=== PATIENT | female | born 1940 | race African-American/Black ===

== ENCOUNTER 2016-10-03 09:46 | Inpatient (IN) | payer OTHER ==
[~2016-10-03] VITALS: Ht 172.7 cm; Wt 91.6 kg
[~2016-10-03 09:46] MED LIST: AMLODIPINE BESYL5 M1 PO; BAYER GENUINE325 M1 PO; CLOPIDOGREL75 M1 PO; COL100 PO; COREG12.5 MG PO; COZ25 PO; FLA500 PO; FOLIC ACID1 MG PO; GLU500 PO; HYDROCHLOROTHIA25 MG PO; HYDROCODONE/ACE1 T12 PO; HYDROXYCHLOROQ200 MG PO; LAC PO; LASIX40 MG PO; LATANOPROST2.5 ML OU; LEVAQUIN750 MG PO; LOP50 PO; METFORMIN HCL500 MG PO; METHOTREXATE2.5 M2; NEXIUM40 MG PO; PRILOSEC40 MG PO; RANITIDINE HCL300 MG PO; SIMETHICONE125 M1 PO; SYNTHROID0.125 MG PO; VIAGRA50 MG PO; ZOCOR40 MG PO
[2016-10-03 10:40] LABS: BASOPHIL % 0.2 % (0-2); PLATELET COUNT 233 x10^3mcL (130-400)
[2016-10-03 10:41] LABS: RED CELL DISTRIBUTION WIDTH 19.8 % (11.5-14.5)
[2016-10-03 10:45] LABS: CALCIUM 8.9 mg/dL (8.5-10.1); CARBON DIOXIDE 21.6 mmol/L (21-32); CHLORIDE SERUM 106 mmol/L (98-107); CREATININE SERUM 0.8 mg/dL (0.6-1.0); GLUCOSE SERUM 166 mg/dL (74-106); POTASSIUM SERUM 3.7 mmol/L (3.5-5.1); SODIUM SERUM 141 mmol/L (136-145)
[2016-10-03 10:51] LABS: ALBUMIN 3.8 g/dL (3.4-5.0); ALKALINE PHOSPHATASE 96 U/L (46-116); ALT/SGPT 22 U/L (14-59); AST/SGOT 20 U/L (15-37); BILIRUBIN TOTAL 0.59 mg/dL (0.20-1.00)
[2016-10-03] MEDS ORDERED: OMEPRAZOLE40 M1 PO (11:03)
[2016-10-03] MEDS ORDERED: FLAX OIL PO (11:03)
[2016-10-03] MEDS ORDERED: LOVAZA1 G1 PO (11:03)
[2016-10-03] MEDS ORDERED: LOSARTAN POTASS25 M1 PO (11:03)
[2016-10-03 13:05] VITALS: BP 156/74
[2016-10-03 13:27] LABS: T3 TOTAL 0.78 ng/mL
[2016-10-03 13:49] LABS: CHOLESTEROL/HDL RATIO 2.4; MAGNESIUM 1.8 mg/dL (1.8-2.4); PHOSPHOROUS 3.9 mg/dL (2.5-4.9)
[2016-10-03 14:14] LABS: FREE T4 1.17 ng/dL (0.76-1.46); FREE THYROXINE INDEX 3.7 ug/dL (1.4-4.5); T4(THYROXINE) 9.9 ug/dL (4.7-13.3)
[2016-10-03 14:33] VITALS: BP 156/74
[2016-10-03 16:22] LABS: UA SPECIFIC GRAVITY >=1.030 (1.005-1.035); microscopic required? YES; urine erythrocyte TRACE (NEGATIVE)
[2016-10-03 16:32] LABS: AMPHETAMINE QUAL UR NONE DETECTED (NEG <=1000)
[2016-10-03 21:18] VITALS: BP 127/46
[2016-10-04 05:26] VITALS: BP 112/42; BP 127/59
[2016-10-04 06:32] LABS: CALCIUM 8.9 mg/dL (8.5-10.1); CARBON DIOXIDE 29.6 mmol/L (21-32); CHLORIDE SERUM 106 mmol/L (98-107); CREATININE SERUM 0.9 mg/dL (0.6-1.0); GLUCOSE SERUM 122 mg/dL (74-106); MAGNESIUM 1.9 mg/dL (1.8-2.4); PHOSPHOROUS 3.9 mg/dL (2.5-4.9); POTASSIUM SERUM 4.1 mmol/L (3.5-5.1); SODIUM SERUM 142 mmol/L (136-145)
[2016-10-04 09:29] VITALS: BP 142/56
[2016-10-04 13:19] VITALS: BP 122/50
[2016-10-04 17:10] VITALS: BP 113/53
[2016-10-04 21:57] VITALS: BP 116/48
[2016-10-05 08:54] LABS: CALCIUM 8.9 mg/dL (8.5-10.1); CARBON DIOXIDE 26.8 mmol/L (21-32); CHLORIDE SERUM 108 mmol/L (98-107); CREATININE SERUM 0.9 mg/dL (0.6-1.0); GLUCOSE SERUM 85 mg/dL (74-106); PHOSPHOROUS 3.6 mg/dL (2.5-4.9); POTASSIUM SERUM 4.4 mmol/L (3.5-5.1); SODIUM SERUM 144 mmol/L (136-145)
[2016-10-05 08:56] LABS: BASOPHIL % 0.2 % (0-2); PLATELET COUNT 206 x10^3mcL (130-400)
[2016-10-05 10:02] LABS: RED CELL DISTRIBUTION WIDTH 19.9 % (11.5-14.5)
[2016-10-05 10:53] VITALS: BP 103/48
[2016-10-05 14:12] VITALS: BP 104/43
[2016-10-05 17:42] VITALS: BP 122/43
[2016-10-05 20:51] VITALS: BP 117/60
[2016-10-06 05:47] VITALS: BP 98/49
[2016-10-06 06:04] LABS: BASOPHIL % 0.3 % (0-2); PLATELET COUNT 239 x10^3mcL (130-400)
[2016-10-06 06:33] LABS: CALCIUM 9.1 mg/dL (8.5-10.1); CARBON DIOXIDE 29.7 mmol/L (21-32); CHLORIDE SERUM 103 mmol/L (98-107); CREATININE SERUM 1.1 mg/dL (0.6-1.0); GLUCOSE SERUM 96 mg/dL (74-106); MAGNESIUM 2.1 mg/dL (1.8-2.4); PHOSPHOROUS 5.9 mg/dL (2.5-4.9); POTASSIUM SERUM 4.1 mmol/L (3.5-5.1); SODIUM SERUM 142 mmol/L (136-145)
[2016-10-06 06:34] LABS: RED CELL DISTRIBUTION WIDTH 19.4 % (11.5-14.5)
[2016-10-06 09:44] VITALS: BP 92/79
[2016-10-06 13:23] VITALS: BP 122/57
[2016-10-07 06:12] VITALS: BP 128/71
[2016-10-07 07:41] LABS: BASOPHIL % 0.3 % (0-2); PLATELET COUNT 224 x10^3mcL (130-400)
[2016-10-07 07:43] LABS: RED CELL DISTRIBUTION WIDTH 19.5 % (11.5-14.5)
[2016-10-07 08:04] LABS: CALCIUM 8.8 mg/dL (8.5-10.1); CHLORIDE SERUM 103 mmol/L (98-107); CREATININE SERUM 1.1 mg/dL (0.6-1.0); GLUCOSE SERUM 99 mg/dL (74-106); PHOSPHOROUS 4.2 mg/dL (2.5-4.9); POTASSIUM SERUM 3.5 mmol/L (3.5-5.1); SODIUM SERUM 141 mmol/L (136-145)
[2016-10-07] MEDS ORDERED: COZ50 PO (09:34)
[2016-10-07] MEDS ORDERED: CLOPIDOGREL75 M1 PO (09:43)
[2016-10-07] MEDS ORDERED: LEVOFLOXACIN750 M1 PO (09:50)
[2016-10-07] MEDS ORDERED: FLA500 PO (09:58)
[2016-10-07] MEDS ORDERED: ROBITUSSIN NIG237 ML PO (09:58)
[2016-10-07 10:00] VITALS: BP 123/72
[2016-10-07] MEDS ORDERED: IBUPROFEN400 MG PO (12:05)
[2016-10-07] MEDS ORDERED: VENTOLIN H0.09 MG/A1 INH (12:08)
[2016-10-07] MEDS ORDERED: ANORO ELLIPTA1 POW IH (12:10)
[2016-10-07 13:00] VITALS: BP 123/72
[2016-10-07 14:30] VITALS: BP 111/61
[2016-10-07] MEDS ORDERED: ASPIR 8181 MG PO (17:15)
[2016-10-07] MEDS ORDERED: CLEOCIN HCL300 MG PO (17:32)
[2016-10-07] MEDS ORDERED: LASIX20 MG PO (17:32)
[2016-10-07] MEDS ORDERED: ROBDML PO (17:32)
[2016-10-07] MEDS ORDERED: CARVEDILOL12.5 M1 PO (17:32)
[2016-10-07] MEDS ORDERED: VIAGRA50 MG PO (18:50)
== END 2016-10-07 18:10 | disposition home health service (06) | DRG 291 ==
LOC: ED 09:46 → DU 12:09
PROVIDERS: Emergency Medicine; ADMIT Family Medicine
DX: I50.43 Acute on chronic combined systolic (congestive) and diastolic (congestive) heart failure (principal); N17.0 Acute kidney failure with tubular necrosis; J96.01 Acute respiratory failure with hypoxia; I42.2 Other hypertrophic cardiomyopathy; J20.9 Acute bronchitis, unspecified; R13.10 Dysphagia, unspecified; E11.65 Type 2 diabetes mellitus with hyperglycemia; I27.2 Other secondary pulmonary hypertension; M06.9 Rheumatoid arthritis, unspecified; I73.00 Raynaud's syndrome without gangrene; J45.909 Unspecified asthma, uncomplicated; I25.10 Atherosclerotic heart disease of native coronary artery without angina pectoris; D64.9 Anemia, unspecified; E03.9 Hypothyroidism, unspecified; N39.3 Stress incontinence (female) (male); Z68.30 Body mass index [BMI] 30.0-30.9, adult; Z95.5 Presence of coronary angioplasty implant and graft; Z79.84 Long term (current) use of oral hypoglycemic drugs
CPT/HCPCS: 82962; 83880; 84439; 92610-GN; 92611-GN; 97110-GP; 97116-GP; 97530-GP; J1644; J1940; J1956; J2543; J2930; J3490; J7030; J7613; J7620; J7644; J8610; Q0092

== ENCOUNTER 2017-08-13 13:01 | Inpatient (IN) | payer OTHER ==
[~2017-08-13] VITALS: Ht 172.7 cm; Wt 86.2 kg
[~2017-08-13 13:01] MED LIST changes: +ANORO ELLIPTA1 POW IH; +ASPIR 8181 MG PO; +CARVEDILOL12.5 M1 PO; +CLEOCIN HCL300 MG PO; +COZ50 PO; +FLAX OIL PO; +IBUPROFEN400 MG PO; +LASIX20 MG PO; +LEVOFLOXACIN750 M1 PO; +LOSARTAN POTASS25 M1 PO; +LOVAZA1 G1 PO; +OMEPRAZOLE40 M1 PO; +ROBDML PO; +ROBITUSSIN NIG237 ML PO; +VENTOLIN H0.09 MG/A1 INH
[2017-08-13 14:41] LABS: microscopic required? NO
[2017-08-13 14:55] LABS: UA SPECIFIC GRAVITY 1.015 (1.005-1.035); urine erythrocyte NEGATIVE (NEGATIVE)
[2017-08-13 15:28] LABS: CARBON DIOXIDE 26.4 mmol/L (21-32); CHLORIDE SERUM 104 mmol/L (98-107); GLUCOSE SERUM 102 mg/dL (74-106); POTASSIUM SERUM 4.1 mmol/L (3.5-5.1); SODIUM SERUM 140 mmol/L (136-145)
[2017-08-13 15:31] LABS: BASOPHIL % 0.8 % (0-2); PLATELET COUNT 221 x10^3mcL (130-400)
[2017-08-13 15:32] LABS: RED CELL DISTRIBUTION WIDTH 19.1 % (11.5-14.5)
[2017-08-13 15:36] LABS: ALBUMIN 3.7 g/dL (3.4-5.0); ALKALINE PHOSPHATASE 115 U/L (46-116); ALT/SGPT 35 U/L (14-59); AST/SGOT 26 U/L (15-37); BILIRUBIN TOTAL 0.5 mg/dL (0.20-1.00); LIPASE 128 IU/L (73-393); TOTAL PROTEIN, SERUM 8.1 g/dL (6.4-8.2)
[2017-08-13 15:41] LABS: FREE T4 1.01 ng/dL (0.76-1.46); FREE THYROXINE INDEX 2.6 ug/dL (1.4-4.5); T4(THYROXINE) 7.6 ug/dL (4.7-13.3)
[2017-08-13 15:42] LABS: HDL CHOLESTEROL 75 mg/dL (40-60)
[2017-08-13 15:47] LABS: T3 TOTAL 0.78 ng/mL
[2017-08-13 15:53] LABS: MAGNESIUM 1.7 mg/dL (1.8-2.4)
[2017-08-13] MEDS ORDERED: METHOTREXATE2.5 M2 PO (15:55)
[2017-08-13] MEDS ORDERED: LEVOTHYROXINE0.1 M2 PO (15:56)
[2017-08-13] MEDS ORDERED: LOSARTAN POTASS25 M1 PO (15:56)
[2017-08-13] MEDS ORDERED: LASIX40 MG PO (15:56)
[2017-08-13] MEDS ORDERED: PRA20 PO (15:56)
[2017-08-13] MEDS ORDERED: COL250 PO (15:57)
[2017-08-13] MEDS ORDERED: CARVEDILOL25 M1 PO (15:57)
[2017-08-13] MEDS ORDERED: KETOCONAZOLE2% TOP (15:58)
[2017-08-13] MEDS ORDERED: DILTIAZEM HCL120 M2 PO (15:58)
[2017-08-13] MEDS ORDERED: WOMEN'S DAILY1 TAB PO (16:00)
[2017-08-13] MEDS ORDERED: VITAMIN D32000 I2 PO (16:00)
[2017-08-13 16:31] LABS: CHOLESTEROL 205 mg/dL (<200); CHOLESTEROL/HDL RATIO 2.7; TRIGLYCERIDES 77 mg/dL (<150)
[2017-08-13 16:47] VITALS: BP 134/44
[2017-08-13 16:54] VITALS: Ht 172.7 cm; Wt 86.2 kg
[2017-08-13 22:21] VITALS: BP 125/49
[2017-08-14 06:13] VITALS: BP 112/50
[2017-08-14 07:16] LABS: CALCIUM 8.5 mg/dL (8.5-10.1); CARBON DIOXIDE 27.8 mmol/L (21-32); CHLORIDE SERUM 108 mmol/L (98-107); GLUCOSE SERUM 112 mg/dL (74-106); MAGNESIUM 1.6 mg/dL (1.8-2.4); PHOSPHOROUS 3.6 mg/dL (2.5-4.9); POTASSIUM SERUM 3.8 mmol/L (3.5-5.1); SODIUM SERUM 143 mmol/L (136-145)
[2017-08-14 07:37] LABS: BASOPHIL % 0.5 % (0-2); PLATELET COUNT 205 x10^3mcL (130-400)
[2017-08-14 07:38] LABS: RED CELL DISTRIBUTION WIDTH 19.3 % (11.5-14.5)
[2017-08-14 09:20] VITALS: BP 11/42
[2017-08-14 13:36] VITALS: BP 124/47
[2017-08-14 17:43] VITALS: BP 146/65
[2017-08-15 04:58] VITALS: BP 123/53
[2017-08-15 09:10] VITALS: BP 137/59
[2017-08-15 10:08] LABS: BASOPHIL % 0.4 % (0-2); PLATELET COUNT 188 x10^3mcL (130-400)
[2017-08-15 10:18] LABS: RED CELL DISTRIBUTION WIDTH 19.2 % (11.5-14.5)
[2017-08-15 12:31] VITALS: BP 120/54
[2017-08-15 12:46] LABS: CALCIUM 8.4 mg/dL (8.5-10.1); CARBON DIOXIDE 25.2 mmol/L (21-32); CHLORIDE SERUM 109 mmol/L (98-107); CREATININE SERUM 0.8 mg/dL (0.6-1.0); GLUCOSE SERUM 110 mg/dL (74-106); MAGNESIUM 1.7 mg/dL (1.8-2.4); PHOSPHOROUS 2.9 mg/dL (2.5-4.9); POTASSIUM SERUM 3.8 mmol/L (3.5-5.1); SODIUM SERUM 142 mmol/L (136-145)
[2017-08-15 14:15] VITALS: BP 94/51
[2017-08-15 20:52] VITALS: BP 112/70
[2017-08-16 05:16] VITALS: BP 129/57
[2017-08-16 09:17] VITALS: BP 117/62
[2017-08-16 10:50] LABS: BASOPHIL % 0.1 % (0-2); PLATELET COUNT 187 x10^3mcL (130-400)
[2017-08-16 10:52] LABS: RED CELL DISTRIBUTION WIDTH 19.1 % (11.5-14.5)
[2017-08-16 11:04] LABS: CALCIUM 8.1 mg/dL (8.5-10.1); CARBON DIOXIDE 26.7 mmol/L (21-32); CHLORIDE SERUM 109 mmol/L (98-107); CREATININE SERUM 0.8 mg/dL (0.6-1.0); GLUCOSE SERUM 128 mg/dL (74-106); MAGNESIUM 1.8 mg/dL (1.8-2.4); PHOSPHOROUS 3.1 mg/dL (2.5-4.9); POTASSIUM SERUM 3.8 mmol/L (3.5-5.1); SODIUM SERUM 139 mmol/L (136-145)
[2017-08-16 17:07] VITALS: BP 106/51
[2017-08-16 20:45] VITALS: BP 125/54
[2017-08-17 05:21] VITALS: BP 95/49
[2017-08-17 06:45] LABS: PLATELET COUNT 180 x10^3mcL (130-400)
[2017-08-17 06:47] LABS: RED CELL DISTRIBUTION WIDTH 18.6 % (11.5-14.5)
[2017-08-17 07:30] LABS: CALCIUM 8.1 mg/dL (8.5-10.1); CARBON DIOXIDE 24.6 mmol/L (21-32); CHLORIDE SERUM 107 mmol/L (98-107); GLUCOSE SERUM 112 mg/dL (74-106); MAGNESIUM 1.9 mg/dL (1.8-2.4); PHOSPHOROUS 3.5 mg/dL (2.5-4.9); POTASSIUM SERUM 4.3 mmol/L (3.5-5.1); SODIUM SERUM 136 mmol/L (136-145)
[2017-08-17 09:56] VITALS: BP 97/48
[2017-08-17 13:40] VITALS: BP 96/49
[2017-08-17 17:47] VITALS: BP 125/54
[2017-08-17 20:23] VITALS: BP 112/54
[2017-08-18 05:54] VITALS: BP 142/68
[2017-08-18 09:04] VITALS: BP 126/78
[2017-08-18 17:25] VITALS: BP 130/59
[2017-08-18 20:56] VITALS: BP 105/49
[2017-08-19 05:53] VITALS: BP 123/60
[2017-08-19 07:23] LABS: BASOPHIL % 0.3 % (0-2); PLATELET COUNT 201 x10^3mcL (130-400)
[2017-08-19 07:30] LABS: CALCIUM 7.9 mg/dL (8.5-10.1); CARBON DIOXIDE 24.9 mmol/L (21-32); CHLORIDE SERUM 108 mmol/L (98-107); CREATININE SERUM 0.8 mg/dL (0.6-1.0); GLUCOSE SERUM 87 mg/dL (74-106); POTASSIUM SERUM 4.2 mmol/L (3.5-5.1); SODIUM SERUM 141 mmol/L (136-145)
[2017-08-19 07:30] LABS: RED CELL DISTRIBUTION WIDTH 18.4 % (11.5-14.5)
[2017-08-19 09:33] VITALS: BP 121/58
[2017-08-19 13:17] VITALS: BP 121/58
== END 2017-08-19 16:05 | DRG 469 ==
LOC: ED 13:01 → DU 14:49 → MU 14:49 → DU 14:49 → MU 08-15 16:21
PROVIDERS: Family Medicine; Internal Medicine; Neuromusculoskeletal Medicine, Sports Medicine; Specialist
PROC: 0SRS0JA Replacement of Left Hip Joint, Femoral Surface with Synthetic Substitute, Uncemented, Open Approach (ICD-10-PCS; principal; 2017-08-15 13:00)
DX: S72.012A Unspecified intracapsular fracture of left femur, initial encounter for closed fracture (principal); N17.0 Acute kidney failure with tubular necrosis; M35.1 Other overlap syndromes; I50.32 Chronic diastolic (congestive) heart failure; E11.9 Type 2 diabetes mellitus without complications; E03.9 Hypothyroidism, unspecified; K21.9 Gastro-esophageal reflux disease without esophagitis; E78.00 Pure hypercholesterolemia, unspecified; I73.00 Raynaud's syndrome without gangrene; I10 Essential (primary) hypertension; E78.5 Hyperlipidemia, unspecified; I27.29 Other secondary pulmonary hypertension; I25.2 Old myocardial infarction; Z96.652 Presence of left artificial knee joint; Z79.899 Other long term (current) drug therapy; W17.89XA Other fall from one level to another, initial encounter; Y93.B9 Activity, other involving muscle strengthening exercises; Y92.89 Other specified places as the place of occurrence of the external cause; Z68.29 Body mass index [BMI] 29.0-29.9, adult
CPT/HCPCS: 36600; 83880; 84439; 94150; 97110-GP; 97116-GP; 97530-GP; 97535-GP; C1776; C9113; J0690; J1644; J1650; J1885; J2250; J2270; J2405; J3010; J3475; J3490; J7030; J7042; J7620; J7626; J8610; Q0092; Q9967

== ENCOUNTER 2018-11-05 08:42 | Observation (INO) | payer OTHER ==
[~2018-11-05] VITALS: Ht 170.2 cm; Wt 86.2 kg
[~2018-11-05 08:42] MED LIST changes: +CARVEDILOL25 M1 PO; +COL250 PO; +DILTIAZEM HCL120 M2 PO; +KETOCONAZOLE2% TOP; +LEVOTHYROXINE0.1 M2 PO; +METHOTREXATE2.5 M2 PO; +PRA20 PO; +VITAMIN D32000 I2 PO; +WOMEN'S DAILY1 TAB PO
[2018-11-05 08:43] VITALS: Ht 170.2 cm; Wt 86.2 kg
--- NOTE | 2018-11-05 08:58 | NUR ---
PT PRESENTS TO ED BIBA WITH C/O SHARP CHEST PAIN. PER EMS PT DAUGHTER STS PT HAS HAD CHEST PAIN FOR LAST 2 WKS INTERMITTENTLY AND TAKES ASPRIN. PT DAUGHTER STS THIS MORNING PT HAD WORSENING CHEST PAIN THAT WOULD NOT GO AWAY AFTER ASPRIN. PER EMS PT WAS GIVEN 1 NITRO TAB AND CHEST PAIN WENT FROM 10 TO 4. PT CURRENTLY DENIES ANY PAIN. EMS STS PT VSS IN ROUTE TO HOSPITAL, PT BLOOD GLUCOSE 133. PT DAUGHTER STS PT HAD UT IN 2007. PT AAOX4, RESP E/U, ON FULL CM, NO ACUTE DISTRESS NOTED AT THIS TIME. PT DAUGHTER AT BEDSIDE.
[2018-11-05 09:25] LABS: BASOPHIL % 0.1 % (0-2); PLATELET COUNT 225 x10^3mcL (130-400)
[2018-11-05 09:38] LABS: RED CELL DISTRIBUTION WIDTH 17.6 % (11.5-14.5)
[2018-11-05 09:43] LABS: CALCIUM 8.4 mg/dL (8.5-10.1); CARBON DIOXIDE 27.9 mmol/L (21-32); CHLORIDE SERUM 107 mmol/L (98-107); CREATININE SERUM 1.1 mg/dL (0.6-1.0); GLUCOSE SERUM 108 mg/dL (74-106); SODIUM SERUM 145 mmol/L (136-145)
[2018-11-05 09:54] LABS: ALKALINE PHOSPHATASE 74 U/L (46-116); ALT/SGPT 18 U/L (14-59); AMYLASE 39 U/L (25-115); AST/SGOT 22 U/L (15-37); BILIRUBIN TOTAL 0.44 mg/dL (0.20-1.00); CHOLESTEROL 172 mg/dL (<200); LIPASE 68 IU/L (73-393); T4(THYROXINE) 8.6 ug/dL (4.7-13.3); TOTAL PROTEIN, SERUM 7.3 g/dL (6.4-8.2)
[2018-11-05 09:55] LABS: ALBUMIN 3.2 g/dL (3.4-5.0); HDL CHOLESTEROL 86 mg/dL (40-60)
--- NOTE | 2018-11-05 10:25 | NUR ---
PT AMBULATED TO RESTROOM WITH ASSISTANCE OF CANE, STEADY GAIT NOTED.
[2018-11-05 10:33] LABS: microscopic required? NO
[2018-11-05] MEDS ORDERED: LIPI20 PO (10:47)
[2018-11-05] MEDS ORDERED: CARVEDILOL25 M1 PO (11:06)
[2018-11-05] MEDS ORDERED: DILTIAZEM HCL120 M2 PO (11:06)
[2018-11-05] MEDS ORDERED: STOOL SOFTENER250 MG PO (11:07)
[2018-11-05] MEDS ORDERED: NATURE'S BLEND F1 MG PO (11:07)
[2018-11-05] MEDS ORDERED: NORCO1 TA2 PO (11:08)
[2018-11-05] MEDS ORDERED: FUROSEMIDE40 MG PO (11:08)
[2018-11-05 11:09] LABS: urine erythrocyte NEGATIVE (NEGATIVE)
[2018-11-05] MEDS ORDERED: KETOCONAZOLE2% TOP (11:09)
[2018-11-05] MEDS ORDERED: HYDROXYCHLOROQ200 MG PO (11:09)
[2018-11-05] MEDS ORDERED: LOSARTAN POTASS25 M1 PO (11:10)
[2018-11-05] MEDS ORDERED: OMEPRAZOLE40 M1 PO (11:10)
[2018-11-05] MEDS ORDERED: METFORMIN HYDR500 M1 PO (11:10)
[2018-11-05] MEDS ORDERED: KLOR-CON M2020 MEQ PO (11:11)
[2018-11-05] MEDS ORDERED: GLYCOLAX119 GM PO (11:11)
[2018-11-05] MEDS ORDERED: PREDNISONE20 MG PO (11:12)
[2018-11-05] MEDS ORDERED: RANITIDINE HCL150 M1 PO (11:12)
[2018-11-05] MEDS ORDERED: VENTOLIN H0.09 MG/A1 (11:13)
[2018-11-05] MEDS ORDERED: ADCIRCA20 MG PO (11:13)
--- NOTE | 2018-11-05 12:05 | NUR ---
REPORT GIVEN TO MERCEDES WALLS ON TELE UNIT TO ASSUME CARE OF PT.
[2018-11-05 12:43] VITALS: BP 155/61
--- NOTE | 2018-11-05 13:02 | NUR ---
PATIENT ARRIVED TO FLOOR. PATIENT IS A/OX4, ABLE TO AMBULATE W CANE. NO COMPLAINTS OF CP AT THIS TIME. DAUGHTER AT BEDSIDE. DR HALL IN TO SPEAK WITH PATIENT ABOUT PLAN OF CARE, ALONG W CARDIAC CONSULTATION. WILL CONTINUE TO MONITOR AT THIS TIME.
[2018-11-05 13:36] VITALS: BP 155/61
--- NOTE | 2018-11-05 16:37 | NUR ---
PATIENT IN BED RESTING. HAS MILD COMPLAINTS OF INDIGESTION 2/. STATES IS TOLERABLE, NO PRN MEDICATIONS AT THIS TIME. DENIES CHEST PAIN. WILL CONTINUE TO MONITOR AT THIS TIME, CALL LIGHT IN REACH, FAMILY AT BEDSIDE.
[2018-11-05 16:54] VITALS: BP 115/45
[2018-11-05] MEDS ORDERED: OPSUMIT10 MG PO (17:00)
--- NOTE | 2018-11-05 18:12 | NUR ---
PATIENT SEATED IN BED, NO COMPLAINTS AT THIS TIME. PATIENT WEANED OFF O2, SAT AT 94-95% ON ROOM AIR, HX OF COPD. FAMILY AT BEDSIDE. PATIENT HAS EARLIER COMPLAINTS OF INDIGESTIONS BUT STATES IT HAS PASSED, NO MEDICATION REQUESTED. WILL ENDORSE TO ONCOMING NURSE, CALL LIGHT IN REACH.
--- NOTE | 2018-11-05 19:15 | NUR ---
RECEIVED PT IN BED COMFORTABLY RESTING WITH FAMILY AT BEDSIDE. AAOX4. BREATHING EVEN AND UNLABORED. DENIES CP OR ANY DISCOMFORT AT THIS TIME. SALINE LOCK TO LEFT WRIST PATENT AND INTACT. BED IN LOWEST POSITION,CALL LIGHT WITHIN REACH,SIDERAIL UP. WILL CONTINUE TO MONITOR.
--- NOTE | 2018-11-05 20:15 | NUR ---
PT C/O CP. CALLED DR SHABAZZ. WAITING FOR CALL BACK.
--- NOTE | 2018-11-05 20:20 | NUR ---
SPOKE TO DR SHABAZZ. NEW ORDERS GIVEN. WILL CONTINUE TO MONITOR.
--- NOTE | 2018-11-05 20:34 | NUR ---
MEDICATED NITRO 0.4 MG SL FOR CP ORDERED. WILL CONTINUE TO MONITOR.
--- NOTE | 2018-11-05 20:47 | NUR ---
PT VERBALIZED NO CP AT THIS TIME.WILL CONTINUE TO MONITOR.
[2018-11-05 20:54] VITALS: BP 109/43
[2018-11-05 21:21] VITALS: BP 140/65
--- NOTE | 2018-11-05 21:24 | NUR ---
PT AGAIN C/O CP 5-07/29. MEDICATED MORPHINE 2MG IV ORDERED. BP: 140/80 HR:100. WILL CONTINUE TO MONITOR.
--- NOTE | 2018-11-05 21:56 | NUR ---
PT C/O INSOMIA. MEDIACTED AMBIEN 5MG PO ORDERED. WILL CONTINUE TO MONITOR.
--- NOTE | 2018-11-06 05:03 | NUR ---
PT REMAINED ASLEEP. NO ACUTE RESPIRATORY DISTRESS NOTED.DENIES CP AT THIS TIME. BED IN LOWEST POSITION,CALL LIGHT WITHIN REACH. WILL CONTINUE TO MONITOR.
[2018-11-06 06:06] VITALS: BP 116/52
[2018-11-06 06:39] LABS: ALKALINE PHOSPHATASE 66 U/L (46-116); ALT/SGPT 18 U/L (14-59); AST/SGOT 18 U/L (15-37); BILIRUBIN TOTAL 0.44 mg/dL (0.20-1.00); CALCIUM 8.5 mg/dL (8.5-10.1); CARBON DIOXIDE 29.5 mmol/L (21-32); CHLORIDE SERUM 110 mmol/L (98-107); CREATININE SERUM 0.9 mg/dL (0.6-1.0); GLUCOSE SERUM 95 mg/dL (74-106); POTASSIUM SERUM 3.8 mmol/L (3.5-5.1); SODIUM SERUM 146 mmol/L (136-145); TOTAL PROTEIN, SERUM 6.4 g/dL (6.4-8.2)
[2018-11-06 06:52] LABS: ALBUMIN 2.9 g/dL (3.4-5.0)
--- NOTE | 2018-11-06 07:00 | NUR ---
RRECIEVED PT RESTING IN BED A/O X4 WITH NO VAZQUEZ OR DIZZINESS. PT ON TELE# 22 AND DENIES CP OR PRESSURE AT THIS TIME. NO SOB NOTED. SALINE LOCK TO LEFT WRIST IN TACT AND PATENT WITH NO REDNESS OR INFLAMMATION. SAFETY PRECAUTIONS IN PLACE, CALL LIGHT WITHN REACH, WILL MONITOR.
--- NOTE | 2018-11-06 07:21 | NUR ---
CARE ENDORSED TO DAY NURSE GIL.ALL QUESTION AND CONCERN WERE ADDRESSED.
[2018-11-06 09:10] VITALS: BP 134/56
--- NOTE | 2018-11-06 10:31 | NUR ---
PT STABLE AT THIS TIME AND REPORTS NO CP OR PRESSURE. WAITHING TO BE CLEARED BY GI DOCTOR. SAFETY PRECAUTIONS IN PLACE, CALL LIGHT WITHIN [facility], WILL MONITOR.
--- NOTE | 2018-11-06 12:00 | NUR ---
PT SATBALE WITH NO DISTRESS OR PAIN NOTED. SAFETY PRECAUTIONS IN PLACE, CALL LIGHT WITHIN REACH, WILL MONITOR.
[2018-11-06 13:34] VITALS: BP 140/68
[2018-11-06 13:47] VITALS: BP 140/68
[2018-11-06 13:56] VITALS: BP 140/68
--- NOTE | 2018-11-06 14:30 | NUR ---
PT STABLE FOR DISCHARGE PER MD ORDER. ALL CARES TOLERATED WELL. VS WNL. PT REPORTS NO CP OR PRESSURE. NO SOB NOTED. ALL DISCHARGE INSTRUCTIONS AND EDUCATION GIVEN TO PT AND CHERIETER, THEY BOTH VERBALIZE UNDERSTANDING. IV REMOVED WITH CATHETER INTACT, NO REDNESS OR INFLAMMATION NOTED TO SITE. PT ESCORTED DOWN TON LOBBY VIA WC BY HR ADVISOR WITH RAUL AT SIDE AND ALL PERSONAL BELONGINGS IN HAND.
== END 2018-11-06 14:30 | disposition home or self-care (01) | DRG 392 ==
LOC: ED 08:42 → DU 11:00 → EDBEDREQ 11:06 → DU 12:27
PROVIDERS: Emergency Medicine; ADMIT Internal Medicine
DX: K22.9 Disease of esophagus, unspecified (principal); I24.8 Other forms of acute ischemic heart disease; J96.11 Chronic respiratory failure with hypoxia; J44.9 Chronic obstructive pulmonary disease, unspecified; I27.20 Pulmonary hypertension, unspecified; Z95.5 Presence of coronary angioplasty implant and graft; I11.9 Hypertensive heart disease without heart failure; I25.10 Atherosclerotic heart disease of native coronary artery without angina pectoris; I73.00 Raynaud's syndrome without gangrene; K21.9 Gastro-esophageal reflux disease without esophagitis; R13.10 Dysphagia, unspecified; M34.9 Systemic sclerosis, unspecified; E11.9 Type 2 diabetes mellitus without complications; E78.5 Hyperlipidemia, unspecified; E03.9 Hypothyroidism, unspecified; D64.9 Anemia, unspecified; Z96.652 Presence of left artificial knee joint; Z87.891 Personal history of nicotine dependence; Z79.84 Long term (current) use of oral hypoglycemic drugs; Z68.29 Body mass index [BMI] 29.0-29.9, adult; Z89.022 Acquired absence of left finger(s)
CPT/HCPCS: 82962; 83880; G0378; J1644; J2270; J7620; Q0092

== ENCOUNTER 2019-05-14 17:13 | Observation (INO) | payer OTHER ==
[~2019-05-14] VITALS: Ht 171.4 cm; Wt 81.2 kg
[~2019-05-14 17:13] MED LIST changes: +ADCIRCA20 MG PO; +FUROSEMIDE40 MG PO; +GLYCOLAX119 GM PO; +KLOR-CON M2020 MEQ PO; +LIPI20 PO; +METFORMIN HYDR500 M1 PO; +NATURE'S BLEND F1 MG PO; +NORCO1 TA2 PO; +OPSUMIT10 MG PO; +PREDNISONE20 MG PO; +RANITIDINE HCL150 M1 PO; +STOOL SOFTENER250 MG PO; +VENTOLIN H0.09 MG/A1 NEB
[2019-05-14 17:19] VITALS: Ht 171.4 cm; Wt 81.2 kg
[2019-05-14 18:15] LABS: BASOPHIL % 0.6 % (0-2); PLATELET COUNT 248 x10^3mcL (130-400)
[2019-05-14 18:18] LABS: CALCIUM 8.9 mg/dL (8.5-10.1); CARBON DIOXIDE 23.3 mmol/L (21-32); CHLORIDE SERUM 104 mmol/L (98-107); CREATININE SERUM 1.9 mg/dL (0.6-1.0); GLUCOSE SERUM 98 mg/dL (74-106); POTASSIUM SERUM 4.2 mmol/L (3.5-5.1); SODIUM SERUM 140 mmol/L (136-145)
[2019-05-14 18:22] LABS: RED CELL DISTRIBUTION WIDTH 19.9 % (11.5-14.5)
[2019-05-14 18:23] LABS: ALBUMIN 3.4 g/dL (3.4-5.0); ALKALINE PHOSPHATASE 90 U/L (46-116); ALT/SGPT 15 U/L (14-59); AST/SGOT 18 U/L (15-37); BILIRUBIN TOTAL 0.54 mg/dL (0.20-1.00); TOTAL PROTEIN, SERUM 7.5 g/dL (6.4-8.2)
[2019-05-14] MEDS ORDERED: ORENITRAM PO ×2 (19:55)
[2019-05-14] MEDS ORDERED: CORE25 PO (19:59)
[2019-05-14] MEDS ORDERED: LASIX40 MG PO (20:00)
[2019-05-14] MEDS ORDERED: LATANOPROST 0.7.5 ML OP (20:02)
[2019-05-14 21:05] VITALS: BP 148/66
[2019-05-15 07:24] VITALS: BP 106/49
[2019-05-15 07:30] LABS: PLATELET COUNT 210 x10^3mcL (130-400)
[2019-05-15 07:35] LABS: BASOPHIL % 0 % (0-2)
[2019-05-15 08:56] LABS: ALKALINE PHOSPHATASE 82 U/L (46-116); ALT/SGPT 15 U/L (14-59); AST/SGOT 16 U/L (15-37); CARBON DIOXIDE 24.3 mmol/L (21-32); CHLORIDE SERUM 106 mmol/L (98-107); CREATININE SERUM 1.5 mg/dL (0.6-1.0); GLUCOSE SERUM 89 mg/dL (74-106); POTASSIUM SERUM 3.8 mmol/L (3.5-5.1); SODIUM SERUM 141 mmol/L (136-145); TOTAL PROTEIN, SERUM 6.7 g/dL (6.4-8.2)
[2019-05-15 08:58] LABS: ALBUMIN 3.1 g/dL (3.4-5.0)
[2019-05-15] MEDS ORDERED: GOOD NEIGHBOR M25 MG PO (10:19)
[2019-05-15 11:58] VITALS: BP 122/47
== END 2019-05-15 14:45 | disposition home or self-care (01) ==
LOC: ED 17:13 → DU 19:34
PROVIDERS: Emergency Medicine; ADMIT Internal Medicine
DX: H81.399 Other peripheral vertigo, unspecified ear (principal); I11.0 Hypertensive heart disease with heart failure; I50.9 Heart failure, unspecified; J06.9 Acute upper respiratory infection, unspecified; I25.10 Atherosclerotic heart disease of native coronary artery without angina pectoris; I25.2 Old myocardial infarction; R26.9 Unspecified abnormalities of gait and mobility
CPT/HCPCS: 82962; 83880; G0378; J7040; Q0092